=== PATIENT | male | born 1980 | race Caucasian/White ===

== ENCOUNTER 2018-12-31 18:10 | Emergency (ER) | payer BC ==
[2018-12-31 18:37] LABS: CHLORIDE,CL 101 mEq/L (98-106); SODIUM,NA 140 mEq/L (136-145)
[2018-12-31] MEDS ORDERED: NS + KCl 20mEq/L 1,000 ML IV SCH (19:00)
--- NOTE | 2018-12-31 19:10 | EDM.PDOC ---
ED HPI GENERAL MEDICAL PROBLEM - General Chief Complaint: Cardiovascular Problem Stated Complaint: increased HR, tingling in hands Time Seen by Provider: 12/31/18 18:20 Source of Information: Reports: Patient History Limitations: Reports: No Limitations - History of Present Illness INITIAL COMMENTS - FREE TEXT/NARRATIVE: States that he was driving home and he felt lightheaded and his heart rate was in the 130's according to his fitbit. Normally he runs in the 60's. He denied any pain. Drift like his hands were numb and tingling and was going up into his arms.. Denied any chest pain. Drift that his heart beat was regular. Denied increase in breathing. He felt like he was going to pass out. Did have father in law come and get him so he didn't have to drive. When arriving his BP was elevated slightly. Hands were visibly shaking. After some discussion he does admit to being under a lot of stress. Onset: Sudden Onset Date: 12/31/18 Location: Reports: Upper Extremity, Left, Upper Extremity, Right - Related Data Allergies Allergy/AdvReac Type Severity Reaction Status Date / Time No Known Allergies Allergy Verified 12/31/18 18:27 Home Meds: Home Meds . [No Known Home Meds] 12/31/18 [History] Past Medical History - Past Health History Medical/Surgical History: Denies Medical/Surgical History Social & Family History - Tobacco Use Smoking Status *Q: Never Smoker - Caffeine Use Caffeine Use: Reports: Coffee - Recreational Drug Use Recreational Drug Use: No - Living Situation & Occupation Living situation: Reports: , with Family Occupation: Employed ED ROS GENERAL - Review of Systems Review Of Systems: See Below Constitutional: Denies: Fever, Chills Respiratory: Reports: No Symptoms Cardiovascular: Reports: Palpitations, Other (tachycardia) GI/Abdominal: Reports: No Symptoms Musculoskeletal: Reports: Arm Pain Skin: Reports: No Symptoms Neurological: Reports: Numbness (bilateral hands.), Paresthesia (bilateral arms. ) Psychiatric: Reports: Anxiety, Other (tearful.) ED EXAM, GENERAL - Physical Exam Exam: See Below Exam Limited By: No Limitations General Appearance: Alert, WD/WN, Anxious Ears: Normal External Exam, Normal Canal, Normal TMs Head: Atraumatic, Normocephalic Neck: Normal Inspection, Supple, Non-Tender, Full Range of Motion Respiratory/Chest: No Respiratory Distress, Lungs Clear, Normal Breath Sounds Cardiovascular: Regular Rate, Rhythm, Tachycardia GI/Abdominal: Normal Bowel Sounds, Soft, Non-Tender Extremities: No Pedal Edema, Normal Capillary Refill, Other (shaking noted to upper extremities bilaterally. strength good bilaterally.) Neurological: Alert, Oriented, Normal Cognition, No Motor/Sensory Deficits Skin Exam: Warm, Dry, Intact Course - Vital Signs Last Recorded V/S: Last Vital Signs Temp 99.0 F 12/31/18 20:15 Pulse 105 H 12/31/18 20:15 Resp 16 12/31/18 20:15 BP 141/79 H 12/31/18 20:15 Pulse Ox 98 12/31/18 20:15 - Orders/Labs/Meds Orders: Active Orders 24 hr Category Date Time Status Head wo Cont [CT] Stat Exams 12/31/18 17:59 Taken POTASSIUM,K [CHEM] Stat Lab 12/31/18 23:00 Ordered NS + KCl 20mEq/L [Normal Saline with 20 mEq KCl] 1,000 Med 12/31/18 19:00 Active ml IV ASDIRECTED EKG 12 Lead [EK] Routine Ther 12/31/18 18:00 Ordered Medication Orders Potassium Chloride/Sodium Chloride (Normal Saline With 20 Meq Kcl) 1,000 mls @ 250 mls/hr IV ASDIRECTED PEDRO Last Admin: 12/31/18 19:00 Dose: 250 mls/hr Labs: Laboratory Tests 12/31/18 12/31/18 Range/Units 18:01 18:01 WBC 13.4 H (5.0-10.0) 10^3/uL RBC 5.05 (4.50-6.00) 10^6/uL Hgb 15.2 (14.0-18.0) g/dL Hct 43.3 (40.0-54.0) % MCV 85.7 (82.0-94.0) fL MCH 30.1 (27.0-32.0) pg MCHC 35.1 (33.0-38.0) g/dL RDW Coeff of Ted 13.0 (11.0-15.0) % Plt Count 306 (150-400) 10^3/uL Neut % (Auto) 60.6 (35-85) % Lymph % (Auto) 28.2 (10-55) % [place] % (Auto) 9.3 (0-16) % Eos % (Auto) 1.6 (0-5) % Baso % (Auto) 0.3 (0-3) % Neut # (Auto) 8.09 H (1.80-7.00) 10^3/uL Lymph # (Auto) 3.77 (1.00-4.80) 10^3/uL [place] # (Auto) 1.24 H (0.00-0.80) 10^3/uL Eos # (Auto) 0.22 (0.00-0.45) 10^3/uL Baso # (Auto) 0.04 10^3/uL Sodium 140 (136-145) mEq/L Potassium 2.9 L* D (3.5-5.0) mEq/L Chloride 101 (98-106) mEq/L Carbon Dioxide 22 (21-32) mmol/L BUN 13 (7-18) mg/dL Creatinine 1.1 (0.7-1.3) mg/dL Est Cr Clr Drug Dosing 89.34 mL/min Estimated GFR (MDRD) > 60 (>=60) mL/min Glucose 126 H D (75-99) mg/dL Calcium 9.5 (8.4-10.1) mg/dL Magnesium 1.9 (1.8-2.4) mg/dL Total Bilirubin 0.3 (0.0-1.0) mg/dL AST 16 (15-37) U/L ALT 17 (12-78) U/L Alkaline Phosphatase 65 (46-116) U/L Lactate Dehydrogenase 96 L (100-190) U/L Creatine Kinase 146 (35-232) U/L Troponin I < 0.017 (0.00-0.06) ng/mL Total Protein 7.7 (6.4-8.2) g/dL Albumin 4.6 (3.4-5.0) g/dL Meds: Medications Generic Name Dose Route Start Last Admin Trade Name Freq PRN Reason Stop Dose Admin Potassium Chloride/Sodium Chloride 1,000 mls @ 250 mls/hr 12/31/18 19:00 19:00 Normal Saline With 20 Meq Kcl IV 250 mls/hr ASDIRECTED PEDRO Administration - Re-Assessments/Exams Free Text/Narrative Re-Assessment/Exam: 04/28/19 19:10 Discussed that his potassium is low at 2.9 and all other labs are normal as well as EG, and CT head. Will infuse IV fluids and 20 meq of KCL over 4 hours. Recheck potassium and then discharge if up. Departure - Departure Time of Disposition: 23:13 Disposition: Home, Self-Care 01 Condition: Good Clinical Impression: Anxiety, Stress, Hypokalemia Forms: ED Department Discharge Additional Instructions: Follow up in clinic as needed. - Problem List & Annotations (1) Anxiety SNOMED Code(s): 45474632 Code(s): F41.9 - ANXIETY DISORDER, UNSPECIFIED Status: Acute Current Visit: No (2) Stress SNOMED Code(s): 81143787, 741156074 Code(s): F43.9 - REACTION TO SEVERE STRESS, UNSPECIFIED Status: Acute Current Visit: No (3) Hypokalemia SNOMED Code(s): 09064575 Code(s): E87.6 - HYPOKALEMIA Status: Acute Current Visit: No - Problem List Review Problem List Initiated/Reviewed/Updated: Yes - My Orders Last 24 Hours: My Active Orders 12/31/18 17:59 Head wo Cont [CT] Stat 12/31/18 18:00 EKG 12 Lead [EK] Routine 12/31/18 19:00 NS + KCl 20mEq/L [Normal Saline with 20 mEq KCl] 1,000 ml IV ASDIRECTED 12/31/18 23:00 POTASSIUM,K [CHEM] Stat - Assessment/Plan Last 24 Hours: My Active Orders 12/31/18 17:59 Head wo Cont [CT] Stat 12/31/18 18:00 EKG 12 Lead [EK] Routine 12/31/18 19:00 NS + KCl 20mEq/L [Normal Saline with 20 mEq KCl] 1,000 ml IV ASDIRECTED 12/31/18 23:00 POTASSIUM,K [CHEM] Stat
== END 2018-12-31 23:15 | disposition home or self-care (01) ==
LOC: CC.ED 18:10
DX: E87.6 Hypokalemia (principal); F41.9 Anxiety disorder, unspecified; F43.9 Reaction to severe stress, unspecified
CPT/HCPCS: 36415; 70450; 80053; 82550; 83615; 83735; 84132; 84484; 85025; 93005; 96365; 96366; 99285-25; J3480